=== PATIENT | male | born 1960 | race Caucasian/White ===

== ENCOUNTER 2017-08-11 19:51 | Observation (INO) | payer MEDICARE, BC ==
[2017-08-11] MEDS: NITROGLYCERIN 0.4 MG TAB SL PRN ×3 (19:57→20:13)
[2017-08-11] MEDS ORDERED: NITROGLYCERIN 0.4 MG TAB SL ONE (19:57)
[2017-08-11] MEDS ORDERED: ASPIRIN 81 MG CHEWABLE CTB PO STA (19:57)
[2017-08-11] MEDS ORDERED: NITROGLYCERIN 0.4 MG TAB SL PRN (19:57)
[2017-08-11] MEDS ORDERED: SODIUM CHLORIDE 0.9% FLUSH 10 ML SOL IV PRN (19:57)
[2017-08-11 20:02] LABS: BASOPHILS % (AUTO) 1 % (0-3); EOSINOPHILS % (AUTO) 1 % (0-9); HEMATOCRIT 42 % (39-53); MEAN CORPUSCULAR HGB CONC 36.4 gm/dl (32.0-36.0); MEAN CORPUSCULAR VOLUME 88 fL (80-100); MONOCYTES % (AUTO) 6.5 % (0-12); NEUTROPHILS % (AUTO) 71.5 % (37-80)
[2017-08-11] MEDS ORDERED: ASPIRIN 81 MG CHEWABLE CTB ONE (20:03)
[2017-08-11 20:23] LABS: CALCIUM 9.4 mg/dl (8.5-10.1); GLOM FILT RATE 68 mL/min (>60); POTASSIUM 3.4 mMol/L (3.5-5.1); SODIUM 141 mMol/L (136-145)
[2017-08-11] MEDS ORDERED: PANTOPRAZOLE SODIUM 40 MG/10 ML PDS IV ONE (20:29)
[2017-08-11] MEDS ORDERED: SODIUM CHLORIDE 0.9% 500 ML 500 ML IV ONE (20:30)
[2017-08-11] MEDS ORDERED: PANTOPRAZOLE SODIUM 40 MG/10 ML PDS ONE (20:32)
[2017-08-11] MEDS ORDERED: KETOROLAC TROMETHAMINE 30 MG/ML SOL IV ONE (20:56)
[2017-08-11] MEDS ORDERED: KETOROLAC TROMETHAMINE 30 MG/ML SOL ONE (20:58)
[2017-08-11 21:37] LABS: APPEARANCE,URINE Clear; BILIRUBIN,URINE NEGATIVE (NEGATIVE); COLOR,URINE Yellow; GLUCOSE, URINE (UA) NEGATIVE (NEGATIVE); KETONES,URINE NEGATIVE (NEGATIVE); LEUKOCYTE ESTERASE ,URINE NEGATIVE (NEGATIVE); NITRATE,URINE NEGATIVE (NEGATIVE); OCCULT BLOOD,URINE 1+ (NEG-TRACE); UROBILINOGEN,URINE 0.2 (0.2-1.0 EU)
[2017-08-11] MEDS ORDERED: LORAZEPAM 0.5 MG TAB PO PRN (21:39)
[2017-08-11 21:57] LABS: RBC,URINE 0-2 (0-3AV/HPF); WBC,URINE 0-2 (0-5AV/HPF)
[2017-08-11 21:58] LABS: AMPHETAMINES NEGATIVE (NEGATIVE); METHADONE NEGATIVE (NEGATIVE); OPIATES(OP13) NEGATIVE (NEGATIVE); OXYCODONE(OXY) NEGATIVE (NEGATIVE); PROPOXYPHENE(PPX) NEGATIVE (NEGATIVE); TRICYCLIC ANTIDEPRESSANTS NEGATIVE (NEGATIVE)
[2017-08-11] MEDS: BUSPIRONE HCL 5 MG TAB PO SCH (23:30)
[2017-08-12] MEDS ORDERED: KETOROLAC TROMETHAMINE 30 MG/ML SOL IV PRN (00:40)
[2017-08-12] MEDS ORDERED: ACETAMINOPHEN 325 MG PO PRN (00:42)
[2017-08-12 01:05] VITALS: RESP 14
[2017-08-12 08:30] LABS: BASOPHILS % (AUTO) 1 % (0-3); EOSINOPHILS % (AUTO) 3 % (0-9); HEMATOCRIT 36 % (39-53); MEAN CORPUSCULAR HGB CONC 36.3 gm/dl (32.0-36.0); MEAN CORPUSCULAR VOLUME 88 fL (80-100); MONOCYTES % (AUTO) 7.4 % (0-12); NEUTROPHILS % (AUTO) 69.4 % (37-80)
[2017-08-12 08:43] LABS: CALCIUM 8.9 mg/dl (8.5-10.1); GLOM FILT RATE 77 mL/min (>60); SODIUM 141 mMol/L (136-145)
[2017-08-12 08:44] VITALS: BP 130/86; PULSE 69; TEMP 97.6; O2SAT 97
[2017-08-12] MEDS: BUSPIRONE HCL 5 MG TAB PO SCH (09:26)
== END 2017-08-12 11:45 | disposition home or self-care (01) | DRG 313 ==
LOC: ED 19:51 → ACUTE CARE 21:26
PROVIDERS: ADMIT Emergency Medicine; ATTEND Emergency Medicine
DX: R07.9 Chest pain, unspecified (principal); F41.9 Anxiety disorder, unspecified; I10 Essential (primary) hypertension; R53.1 Weakness; R20.0 Anesthesia of skin; R20.2 Paresthesia of skin
CPT/HCPCS: 36415; 70450; 71045; 80048; 80305; 81001; 82550; 84484; 85025; 85610; 85730; 93005; 93012; 96365; 96374; 96375; 99217; 99285; 99291; J1885